=== PATIENT | male | born 1960 | race Caucasian/White ===

== ENCOUNTER 2017-03-05 08:01 | Day surgery (SDC) | payer OTHER ==
[~2017-03-05] VITALS: Ht 185.4 cm; Wt 96.4 kg
[2017-03-05] VITALS (12 sets, daily range): BP systolic 122–154; BP diastolic 80–101; PULSE 72–88; RESP 16–26; Ht 185.4 cm; Wt 96.4 kg
[~2017-03-05 08:01] MED LIST: CEFAZOLIN 2 GM/50 ML (PMX) 50 ML IVPB ONE; GLYCOPYRROLATE 0.4 MG INJ ONE; NEOSTIGMINE 3 MG/3 ML SYRINGE ONE; SOD CHLORIDE 0.9% 1,000 ML IV ONE
[2017-03-05] MEDS ORDERED: POLYMYXIN/BACITRACIN 1L IRRIG ONE (10:38)
[2017-03-05] MEDS ORDERED: BUPIVACAINE 0.25% (MPF) 30 ML INJ ONE (10:38)
[2017-03-05] MEDS ORDERED: MIDAZOLAM 1 MG/ML 2 ML INJ ONE (11:13)
[2017-03-05] MEDS ORDERED: FENTAnyl 50 MCG/ML VIAL ONE (11:13)
[2017-03-05] MEDS ORDERED: SUCCINYLCHOLINE CHLORIDE 100 MG/5 ML SYG IV ONE (11:21)
[2017-03-05] MEDS ORDERED: FAMOTIDINE 20 MG INJ ONE (11:21)
[2017-03-05] MEDS ORDERED: ROCURONIUM 50 MG INJ ONE (11:21)
[2017-03-05] MEDS ORDERED: CEFAZOLIN 1 GM INJ ONE (11:21)
[2017-03-05] MEDS ORDERED: LIDOCAINE 2% (SDV) 5 ML INJ ONE (11:21)
[2017-03-05] MEDS ORDERED: ONDANSETRON 4 MG INJ ONE (11:21)
[2017-03-05] MEDS ORDERED: DEXAMETHASONE 4 MG/ML 1 ML INJ ONE (11:21)
[2017-03-05] MEDS ORDERED: PROPOFOL 20 ML ONE (11:21)
[2017-03-05] MEDS ORDERED: KETOROLAC 30 MG INJ ONE (11:56)
[2017-03-05] MEDS ORDERED: LABETALOL HCL 20MG INJ IV PRN (12:00)
[2017-03-05] MEDS ORDERED: PROCHLORPERAZINE 10 MG INJ IV PRN (12:00)
[2017-03-05] MEDS ORDERED: DIPHENHYDRAMINE 50 MG INJ IV PRN (12:00)
[2017-03-05] MEDS ORDERED: MEPERIDINE 25 MG INJ IV PRN (12:00)
[2017-03-05] MEDS ORDERED: FENTAnyl 50 MCG/ML VIAL IV PRN (12:00)
[2017-03-05] MEDS ORDERED: HYDROCODONE/APAP (5/325) TAB PO ONE (12:00)
[2017-03-05] MEDS ORDERED: hydrALAzine 20 MG INJ IV PRN (12:00)
[2017-03-05] MEDS ORDERED: HYDROmorphONE (0.2 MG/ML) 10ML SYG IV PRN (12:00)
[2017-03-05] MEDS ORDERED: OXYCODONE/ACETAMINOPHEN (5/325) TAB PO PRN ×2 (12:00)
[2017-03-05] MEDS ORDERED: ONDANSETRON 4 MG INJ IV PRN (12:00)
[2017-03-05] MEDS ORDERED: hydrALAzine 20 MG INJ ONE (12:03)
--- NOTE | 2017-03-05 12:04 | OPR ---
Date/Time of Note Date/Time of Note DATE: 03/05/17 TIME: 12:00 Operative Report Procedure Date: Mar 05, 2017 Preoperative Diagnosis left incarcerated inguinal hernia Postoperative Diagnosis same Operation/Procedure Performed 1. open left incarcerated inguinal hernia repair with medium ultrapro hernia system mesh 2. therapeutic injection of subcutaneous local anesthesia Surgeon see signature line Form Builder Helper none Anesthesia Type: general Estimated Blood Loss: 0 - 10 ml's Transfusion none Specimen none Grafts/Implants none Complications none Pt Condition Post Procedure: stable Indications This is a 56-year-old male with a left inguinal incarcerated hernia. He requests surgical repair risks alternatives benefits and percent were discussed with the patient. Patient expressed understanding and consents to the operation. Procedure Description Patient taken to the OR prepped and draped in usual sterile fashion. Surgical timeout is performed. IV antibiotics given. Left inguinal oblique incision is made with a 10 blade. Dissection cautery was carried onto the fascia. The fascia was opened with a 15 blade. This incision is extended medially inferiorly lateral superiorly with Metzenbaum scissors. Cord structures identified and encircled with a [place] drain. Incarcerated indirect hernia is identified and reduced manually. This indirect hernia defect is identified and buttressed with the distal portion of the ultrapure hernia system mesh. This is secured in place with a running 0 Prolene from the pubic tubercle along the shelving edge of the inguinal ligament. Superiorly to the internal oblique this is secured with interrupted 3-0 Vicryl. The onlay mesh is secured in a similar fashion from the pubic tubercle along the shelving edge of the inguinal ligament with a running 0 Prolene for. Strep screen reapproximate around the cord structures to re-create the inguinal ring with interrupted 0 Prolene. The only mesh was secured to the internal oblique with interrupted 3-0 Vicryl. Externally fascia is closed a running 3-0 Vicryl. Eliezer's was closed with interrupted 3-0 Vicryl. Skin is closed using skin nina. There appears to contains local anesthesia is injected throughout the incision site. Dry dressings were applied. Alek DUMONT Mar 05, 2017 12:04
== END 2017-03-05 14:35 | disposition home or self-care (01) ==
LOC: SDS 08:01
PROVIDERS: ATTEND Surgery
DX: K40.90 Unilateral inguinal hernia, without obstruction or gangrene, not specified as recurrent (principal)
CPT/HCPCS: 49507; C1781; J0360; J0690; J1100; J1885; J2250; J2405; J2710; J3010; Z7512; Z7610